=== PATIENT | female | born 2000 | race Asian ===

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

== ENCOUNTER 2019-03-28 19:29 | Emergency (ER) | payer OTHER ==
[2019-03-28 19:36] VITALS: BP 147/97
[2019-03-28 19:54] LABS: Influenza B Molecular POSITIVE (Negative)
[2019-03-28] MEDS ORDERED: Oseltamivir CAP* 75 MG CAP PO ONE (20:24)
--- NOTE | 2019-03-28 20:27 | ED ---
Influenza-Like Illness - HPI Summary HPI Summary: Patient is a 18 y/o F presenting to [facility] with complaints of fever, diffuse body aches, congestion, SOB and MI. Patient states that Sx onset this morning, patient was asymptomatic yesterday. She states that she had a fever of 103.5 F this morning. Patient took Tylenol with improvement of temperature to 100 F. Patient took a nap and awoke later in the day with body aches once more and temperature of 104.5 F. Patient took another dose of Tylenol which only decreased her temperature to 103 F. Mother advised the patient to come to ED for evaluation. She has not had the flu shot this season. Patient is originally from [place]. She notes that she lives with multiple people with similar Sx. Some SOB and congestion is noted but she denies rhinorrhea, cough, vomiting , diarrhea, and rashes. MI that the patient attributes to her fever is reported as well. Home medications and allergies are reviewed. - History of Current Complaint Chief Complaint: EDFever Time Seen by Provider: 03/28/19 20:17 Hx Obtained From: Patient Onset/Duration: Lasting Hours, Still Present Severity: Moderate Associated Signs & Symptoms: Fever, T Max - 104.5 F, F/C, Myalgia, Nasal Congestion, Headache Related Hx: Possible Flu/Infectious Exposure - Allergy/Home Medications Allergies/Adverse Reactions: Allergies Allergy/AdvReac Type Severity Reaction Status Date / Time No Known Allergies Allergy Verified 03/28/19 19:34 PMH/Surg Hx/FS Hx/Imm Hx Sensory History: Denies: Hx Legally Blind, Hx Deafness Opthamlomology History: Denies: Hx Legally Blind EENT History: Denies: Hx Deafness - Immunization History Date of Influenza Vaccine: 2019 Immunizations Up to Date: Yes Infectious Disease History: No Infectious Disease History: Denies: Traveled Outside the [place] in Last 30 Days - Family History Known Family History: Negative: Blood Disorder - Social History Alcohol Use: None Hx Substance Use: No Substance Use Type: Reports: None Hx Tobacco Use: No - N [employer] Smoking Status (MU): Never Smoked Tobacco Review of Systems Positive: Fever ENT: Other - positive - congestion Negative: Nasal Discharge Positive: Shortness Of Breath. Negative: Cough Negative: Vomiting, Diarrhea Positive: Myalgia Negative: Rash Positive: Headache All Other Systems Reviewed And Are Negative: Yes Physical Exam - Summary Physical Exam Summary: Appearance: Well-appearing, Well-nourished, lying in bed comfortably; Febrile but non-toxic in appearance Skin: Febrile, dry, no obvious rash Eyes: sclera anicteric, no conjunctival pallor ENT: mucous membranes moist, pharynx appears normal Neck: Supple, nontender Respiratory: Clear to auscultation, no signs of respiratory distress Cardiovascular: Normal S1, S2. No murmurs. Normal distal pulses in tibial and radial bilaterally. Abdomen: Soft, nontender, normal active bowel sounds present Musculoskeletal: Normal, Strength/ROM Intact Neurological: A&Ox3, awake and alert, mentation is normal, speech is fluent and appropriate Psychiatric: affect is normal, does not appear anxious or depressed Triage Information Reviewed: Yes Vital Signs On Initial Exam: Initial Vitals Temp Pulse Resp BP Pulse Ox 99.6 F 101 15 147/97 97 03/28/19 19:33 03/28/19 19:33 03/28/19 19:33 03/28/19 19:33 03/28/19 19:33 Vital Signs Reviewed: Yes Procedures - Sedation Patient Received Moderate/Deep Sedation with Procedure: No Diagnostics - Vital Signs Vital Signs Temp Pulse Resp BP Pulse Ox 03/28/19 19:33 99.6 F 101 15 147/97 97 - Laboratory Lab Results: Lab Results 03/28/19 Range/Units 19:37 Influenza A (Rapid) Not Reportable Influenza B (Rapid) Positive A (Negative) Lab Statement: Any lab studies that have been ordered have been reviewed, and results considered in the medical decision making process. Flu Symptom Course/Dx - Course Course Of Treatment: Patient is a 18 y/o F presenting to [facility] with complaints of fever, diffuse body aches, congestion, SOB and MI. Patient states that Sx onset this morning, patient was asymptomatic yesterday. She states that she had a fever of 103.5 F this morning. Patient took Tylenol with improvement of temperature to 100 F. Patient took a nap and awoke later in the day with body aches once more and temperature of 104.5 F. Patient took another dosage of Tylenol, which only decreased her temperature to 103 F. Mother advised the patient to come to ED for evaluation. She has not had flu shot this season. Patient is originally from [place]. She notes that she lives with multiple people with similar Sx. Some SOB and congestion is noted but she denies rhinorrhea, cough, vomiting, diarrhea, and rashes. MI that the patient attributes to her fever is reported as well. Patient is febrile but non-toxic in appearance. Influenza B was positive. She was prescribed Tamiflu and discharged to home with PCP followup. - Diagnoses Provider Diagnoses: Influenza B Discharge ED - Sign-Out/Discharge Documenting (check all that apply): Patient Departure - discharge - Discharge Plan Condition: Stable Disposition: HOME Prescriptions: Oseltamivir CAP* [Tamiflu CAP*] 75 mg PO BID #10 cap Patient Education Materials: Influenza (ED) Forms: *School Release Referrals: [facility] - Emil [Primary Care Provider] - - Billing Disposition and Condition Condition: STABLE Disposition: Home - Attestation Statements Document Initiated by Shamika: Yes Documenting Scribe: JOLEEN NOLASCO Provider For Whom Shamika is Documenting (Include Credential): TANI ALICEA MD Scribe Attestation: JOLEEN Salguero scribed for TANI ALICEA MD on 04/01/19 at 1830. Scribe Documentation Reviewed: Yes Provider Attestation: The documentation as recorded by the JOLEEN akhtar accurately reflects the service I personally performed and the decisions made by me, TANI ALICEA MD Status of Scribe Document: Viewed
== END 2019-04-22 16:16 | disposition home or self-care (01) ==
LOC: ED 19:29
DX: J10.1 Influenza due to other identified influenza virus with other respiratory manifestations (principal); R50.9 Fever, unspecified; R06.02 Shortness of breath; R51 Headache
CPT/HCPCS: 99282; A9270-GY